=== PATIENT | male | born 1945 | race African-American/Black ===

== ENCOUNTER 2019-04-19 17:51 | Observation (INO) | payer MEDICARE, MEDICAID ==
--- NOTE | 2019-04-19 18:21 | ER Document Report ---
ED Medical Screen (RME) - General Chief Complaint: Weakness Stated Complaint: WEAKNESS,SPEECH SLOW Time Seen by Provider: 04/19/19 18:08 Primary Care Provider: PREMA KING MD [Primary Care Provider] - Follow up as needed Notes: Patient is a 73-year-old male who presents emergency department with a chief complaint of possible stroke. Daughter in triage reports that he drove to pick her up from work about 1 hour ago and that he was not acting himself. She reports that it took him longer than normal to unlock the door, that he was driving 50 mph when the speed limit was 45 mph and just seems more slower to respond. Patient reports he noticed the symptoms around 4:30 AM this morning. Daughter states that he does not go to a doctor regularly and does not have any past medical history. Does not take any home medications. Patient denies falling. Patient reports he is not having a headache but noticed that he has had blurred vision in both eyes. Patient denies numbness or tingling to his upper or lower extremities. Patient reports he feels like he has a visor over both of his eyes even though he does not. Patient reports this morning around 5 AM he noticed that he was slower to respond and get words out. Patient denies recent illness. Denies history of stroke or TIA. TRAVEL OUTSIDE OF THE [place] IN LAST 30 DAYS: No - Related Data Allergies/Adverse Reactions: No Known Allergies Allergy (Verified 04/19/19 18:07) Past Medical History - Past Medical History Cardiac Medical History: Reports: Hx Hypertension Musculoskeltal Medical History: Reports Hx Arthritis - Immunizations Hx Diphtheria, Pertussis, Tetanus Vaccination: Yes Physical Exam - Vital signs Vitals: Temp Pulse Resp BP Pulse Ox 98.7 F 70 21 H 160/91 H 98 04/19/19 18:06 04/19/19 18:06 04/19/19 18:06 04/19/19 18:06 04/19/19 18:06 Course - Re-evaluation Re-evalutation: 04/19/19 18:20 In triage patient is alert and oriented x3. I am running this as a code stroke as the symptoms have been less than 24 hours. Patient is able to answer questions appropriately but appears to be slower to answer the questions and having difficulty getting the words out. Daughter reports that he is usually much faster than this and that this is a change from his normal. Patient reports this did start around 430-5 AM this morning, and states he did wake up normal. Patient does live by himself. I have greeted and performed a rapid initial assessment of this patient. A comprehensive ED assessment and evaluation of the patient, analysis of test results and completion of the medical decision making process will be conducted by additional ED providers. - Vital Signs Vital signs: Temp Pulse Resp BP Pulse Ox 98.7 F 70 21 H 160/91 H 98 04/19/19 18:06 04/19/19 18:06 04/19/19 18:06 04/19/19 18:06 04/19/19 18:06 Doctor's Discharge - Discharge Referrals: PREMA KING MD [Primary Care Provider] - Follow up as needed
--- NOTE | 2019-04-19 18:41 | RADIOLOGY REPORT (SQ) ---
EXAM DESCRIPTION: CHEST SINGLE VIEW COMPLETED DATE/TIME: 04/19/2019 6:34 pm REASON FOR STUDY: SLURRED AND SLOWED SPEECH COMPARISON: 06/14/2015 EXAM PARAMETERS: NUMBER OF VIEWS: One view. TECHNIQUE: Single frontal radiographic view of the chest acquired. RADIATION DOSE: NA LIMITATIONS: None. FINDINGS: LUNGS AND PLEURA: No opacities, masses or pneumothorax. No pleural effusion. MEDIASTINUM AND HILAR STRUCTURES: No masses. Contour normal. HEART AND VASCULAR STRUCTURES: Heart normal in size. Normal vasculature. BONES: No acute findings. HARDWARE: None in the chest. OTHER: No other significant finding. IMPRESSION: NO ACUTE RADIOGRAPHIC FINDING IN THE CHEST. TECHNICAL DOCUMENTATION: JOB ID: [id number] 2010 [employer]- All Rights Reserved Reading location - IP/workstation name: [email or web address]
--- NOTE | 2019-04-19 19:00 | RADIOLOGY REPORT (SQ) ---
EXAM DESCRIPTION: CT HEAD WITHOUT COMPLETED DATE/TIME: 04/19/2019 6:46 pm REASON FOR STUDY: SLURRED AND SLOWED SPEECH COMPARISON: 10/02/2014 TECHNIQUE: Axial images acquired through the brain without intravenous contrast. Images reviewed wi th bone, brain and subdural windows. Additional sagittal and coronal reconstructions were generated. Images stored on PACS. All CT scanners at this facility use dose modulation, iterative reconstruction, and/or weight based d osing when appropriate to reduce radiation dose to as low as reasonably achievable (ALARA). [facility]: Dose Right [facility]: CareDose [facility]: Dose Right [facility]: Teradose 4D [facility]: Smart innocutis RADIATION DOSE: CT Rad equipment meets quality standard of care and radiation dose reduction techniq ues were employed. CTDIvol: 53.2 mGy. DLP: 911 mGy-cm. mGy. LIMITATIONS: None. FINDINGS: VENTRICLES: Age appropriate CEREBRUM: No masses. No hemorrhage. No midline shift. Focal area of hypoattenuation and encephalom alacia within the left caudate head, new from prior exam. No additional evidence of large vascular t erritory infarct. Remaining galvan-white differentiation is preserved. CEREBELLUM: No masses. No hemorrhage. No alteration of density. No evidence for acute infarction. EXTRAAXIAL SPACES: Mild age-related involutional change. No fluid collections. No masses. ORBITS AND GLOBE: No intra- or extraconal masses. Normal contour of globe without masses. CALVARIUM: No fracture. PARANASAL SINUSES: No fluid or mucosal thickening. SOFT TISSUES: No mass or hematoma. OTHER: No other significant finding. IMPRESSION: 1. Focal area of hypoattenuation within the left caudate head, likely prior chronic lacu enmanuel infarct but new since prior exam dated 10/02/2014. 2. No other evidence of acute intracranial process. 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 Findings discussed with Dr. Singh At 1853 hours on 04/19/2019. TECHNICAL DOCUMENTATION: JOB ID: [id number] Quality ID # [id number]: Final reports with documentation of one or more dose reduction techniques (e.g., Au tomated exposure control, adjustment of the mA and/or kV according to patient size, use of iterative reconstruction technique) 2010 [employer]- All Rights Reserved Reading location - IP/workstation name: [email or web address]
--- NOTE | 2019-04-19 19:57 | ER Document Report ---
ED General - General Chief Complaint: S/S of Possible Stroke Stated Complaint: WEAKNESS,SPEECH SLOW Time Seen by Provider: 04/19/19 18:08 TRAVEL OUTSIDE OF THE [place] IN LAST 30 DAYS: No - HPI Notes: Patient is a 73-year-old gentleman with a history of chronic pain, he does not see a primary care physician, who presents to the emergency department for evaluation of slurred speech, expressive aphasia, and confusion. Patient lives alone. He woke up at about 430 this morning. Shortly afterwards he went to [employer] to meet with other family members and friends. He admits at that point he was having difficulty with words, slurring his speech. He went about his day is normal. 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 He was having confusion, difficulty unlocking the doors. He was driving approximately 15 miles an hour on a 45 [id number] zone. He has been acting oddly. He stated he had some visual changes earlier. He really cannot describe them for me other than stating "it is like a visor in my eyes." He states that that has resolved. At this point he denies any pain. - Related Data Allergies/Adverse Reactions: No Known Allergies Allergy (Verified 04/19/19 18:07) Home Medications: Percocet 10 mg as needed. Past Medical History - Social History Smoking Status: Current Every Day Smoker Chew tobacco use (# tins/day): No Family History: Reviewed & Not Pertinent Patient has suicidal ideation: No Patient has homicidal ideation: No - Past Medical History Cardiac Medical History: Reports: Hx Hypertension Musculoskeletal Medical History: Reports Hx Arthritis - Immunizations Hx Diphtheria, Pertussis, Tetanus Vaccination: Yes Physical Exam - Vital signs Vitals: Temp Pulse Resp BP Pulse Ox 98.7 F 70 21 H 160/91 H 98 04/19/19 18:06 04/19/19 18:06 04/19/19 18:06 04/19/19 18:06 04/19/19 18:06 - Notes Notes: Is a 73-year-old obese gentleman who appears his stated age, no acute distress. Vital signs reviewed, please refer to chart. Head is normocephalic, atraumatic. Pupils equal round, reactive to light. Neck is supple without meningismus. Heart is regular rate and rhythm. Lungs are clear to auscultation bilaterally. Abdomen is soft, nontender, normoactive bowel sounds throughout. Extremities without cyanosis, clubbing. Posterior calves are nontender. Peripheral pulses are equal. Skin is warm and dry. Patient is awake and alert. He is oriented x3. He is very slow to answer questions, has some very mild expressive aphasia. Patient with some mild dysarthria, but otherwise cranial nerves II through XII are grossly tact without focal neurological deficits.. Strength is 4+ out of 5 left upper extremity, plus 5 out of 5 right upper and bilateral lower extremities. Sensation is intact, reflexes are diminished but symmetrical. Intact [id number], rapid altering movements, [id number]. Course - Re-evaluation Re-evalutation: 04/19/19 22:13 Patient presents to the emergency department for evaluation. Unfortunately, the patient lives alone. I am unsure as to whether or not his symptoms are present when he woke, and he is a very poor historian. For this reason on its own the patient does not meet any TPA criteria. The patient had a CT scan per stroke protocol on arrival. It did show an old caudate CVA, new since 2014, but not likely acute. Patient's blood pressure was elevated here in the 180s and 190s. He was initially given hydralazine with little in the way of improvement. He was further given labetalol. His blood pressure improved, he is currently 160/74. His heart rates in the 60s. He remains vitally stable. He still has some mild expressive aphasia and dysarthria. His very mild left upper extremity weakness is improved. Patient is noncompliant, does not have a primary care doctor. I will contact internal medicine for admission. 04/19/19 22:22 On reevaluation, patient is very mild left upper extremity weakness has resolved, his slurred speech has improved greatly, and according to family his expressive aphasia has improved as well. Awaiting discussion with Dr. Shearer. 04/19/19 22:55 Dr. Shearer will admit the patient - Vital Signs Vital signs: Temp Pulse Resp BP Pulse Ox 98.7 F 97 14 158/76 H 100 04/19/19 18:06 04/19/19 21:00 04/19/19 21:31 04/19/19 21:31 04/19/19 21:31 - Laboratory Result Diagrams: 04/19/19 19:22 04/19/19 19:22 Laboratory results interpreted by me: 04/19/19 04/19/19 19:22 19:22 RDW 14.3 H Total Protein 8.5 H - Diagnostic Test Radiology reviewed: Reports reviewed Radiology results interpreted by me: 04/19/19 22:15 Chest X-Ray 04/19/19 18:16 IMPRESSION: NO ACUTE RADIOGRAPHIC FINDING IN THE CHEST. Head CT 04/19/19 18:16 IMPRESSION: 1. Focal area of hypoattenuation within the left caudate head, likely prior chronic lacunar infarct but new since prior exam dated 10/02/2014. 2. No other evidence of acute intracranial process. 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 Findings discussed with Dr. Singh At 1853 hours on 04/19/2019. - EKG Interpretation by Me Additional EKG results interpreted by me: 04/19/19 22:16 Sinus rhythm with a rate of 67 bpm. PVC. Left axis deviation. IVCD with incomplete left bundle branch block. Diffuse T wave changes, unchanged from prior study of June 14, 2015. Discharge - Discharge Clinical Impression: CVA (cerebral vascular accident) Qualifiers: CVA mechanism: unspecified Qualified Code(s): I63.9 - Cerebral infarction, unspecified Condition: Stable Disposition: ADMITTED INPATIENT Admitting Provider: Manfred (Hospitalist) Unit Admitted: [facility]
[2019-04-19 20:00] LABS: ABSOLUTE EOSINOPHILS # (AUTO) 0.1 10^3/uL (0.0-0.6); ABSOLUTE LYMPHOCYTES (AUTO) 3.6 10^3/uL (0.5-4.7); ABSOLUTE MONOCYTES (AUTO) 0.7 10^3/uL (0.1-1.4); ABSOLUTE NEUT (AUTO) 3.8 10^3/uL (1.7-8.2); BASOPHILS % (AUTO) 0.5 % (0-2); EOSINOPHILS % (AUTO) 1.7 % (0-6); HEMATOCRIT 43.5 % (37.9-51.0); HEMOGLOBIN 14.7 g/dL (13.5-17.0); LYMPHOCYTES % (AUTO) 43.7 % (13-45); MEAN CORPUSCULAR HEMOGLOBIN 29.2 pg (27.0-33.4); MEAN CORPUSCULAR HGB CONC 33.7 g/dL (32.0-36.0); MEAN CORPUSCULAR VOLUME 87 fl (80-97); MONOCYTES % (AUTO) 8.3 % (3-13); PLATELET COUNT 211 10^3/uL (150-450); RED BLOOD COUNT 5.03 10^6/uL (4.35-5.55); RED CELL DISTRIBUTION WIDTH 14.3 % (11.5-14.0); SEGMENTED NEUTROPHILS % (AUTO) 45.8 % (42-78); TOTAL CELLS COUNTED % (AUTO) 100 %; WHITE BLOOD COUNT 8.3 10^3/uL (4.0-10.5)
[2019-04-19 20:01] LABS: INTERNATIONAL RATION (INR) 1.05; PROTHROMBIN TIME 13.8 SEC (11.4-15.4)
[2019-04-19 20:02] LABS: PARTIAL THROMBOPLASTIN TIME 26.4 SEC (23.5-35.8)
[2019-04-19] MEDS ORDERED: HYDRALAZINE HCL INJ/PF 20 MG/1 ML SDV IV ONE (20:03)
[2019-04-19 20:18] LABS: ALBUMIN 4.7 g/dL (3.5-5.0); ALKALINE PHOSPHATASE 117 U/L (38-126); ANION GAP 11 (5-19); ASPARTATE AMINO TRANSFERASE 23 U/L (17-59); BILIRUBIN,DIRECT 0.3 mg/dL (0.0-0.4); BILIRUBIN,TOTAL 0.5 mg/dL (0.2-1.3); BLOOD UREA NITROGEN 14 mg/dL (7-20); CALCIUM 9.7 mg/dL (8.4-10.2); CARBON DIOXIDE 25 mmol/L (22-30); CHLORIDE 103 mmol/L (98-107); CREATINE KINASE 153 U/L (55-170); GLUCOSE 95 mg/dL (75-110); POTASSIUM 4.5 mmol/L (3.6-5.0); TOTAL PROTEIN 8.5 g/dL (6.3-8.2)
[2019-04-19 20:30] LABS: CREATINE KINASE MB 2.81 ng/mL (<4.55)
[2019-04-19 20:41] LABS: TROPONIN I 0.061 ng/mL
[2019-04-19] MEDS ORDERED: LABETALOL HCL INJ 20 MG/4 ML DISP.SYRIN IV ONE (21:04)
[2019-04-19] MEDS ORDERED: ASPIRIN 325 MG TABLET PO ONE (21:04)
--- NOTE | 2019-04-19 22:57 | EKG REPORT ---
SEVERITY:- ABNORMAL ECG - SINUS RHYTHM VENTRICULAR PREMATURE COMPLEX PROBABLE LEFT ATRIAL ABNORMALITY LVH WITH IVCD, LAD AND SECONDARY REPOL ABNRM : Confirmed by: Ayse Porter MD 19-Apr-2019 22:56:15
[2019-04-19] MEDS ORDERED: MAGNESIUM HYDROXIDE SUSP 30 ML UDCUP PO PRN (22:59)
[2019-04-19] MEDS ORDERED: ACETAMINOPHEN 325 MG TABLET PO PRN (22:59)
[2019-04-19] MEDS ORDERED: DOCUSATE SODIUM 100 MG CAPSULE PO PRN (22:59)
[2019-04-20] MEDS: ATORVASTATIN CALCIUM 80 MG TABLET PO SCH ×2 (00:07→21:21)
[2019-04-20] MEDS ORDERED: NICOTINE 7 MG/24 HR PATCH.TD24 ONE (00:30)
[2019-04-20] MEDS: NICOTINE 7 MG/24 HR PATCH.TD24 TD SCH ×2 (00:56→10:11)
--- NOTE | 2019-04-20 05:29 | PDOC H&P ---
History of Present Illness Admission Date/PCP: 04/19/19 23:07 Patient complains of: Weakness and slow speech History of Present Illness: EMIR BARROS is a 73 year old male with a past medical history of hypertension without medication, arthritis related chronic pain and tobacco dependence. He presents with at least 12 hours of word finding difficulty, and discoordination, slurred speech and generalized weakness. In the emergency department he is found to have dysarthria, hypertensive urgency of 190/110. He receives aspirin, hydralazine, labetalol. CT imaging reveals subacute caudate CVA. He is referred to the hospitalist for admission. Patient family deny previous episode or palpitations. Patient is otherwise felt chronically tired with poor sleep and fatigue. He denies recent change in medications. Past Medical History Cardiac Medical History: Reports: Hypertension Musculoskeltal Medical History: Reports: Arthritis Psychiatric Medical History: Reports: Tobacco Dependency Social History Information Source: Patient Lives with: Alone Smoking Status: Current Every Day Smoker Electronic Cigarette use?: No Frequency of Alcohol Use: None Drugs: None - Advance Directive Resuscitation Status: Full Code Family History Family History: CAD, DM, Hypertension Parental Family History Reviewed: Yes Children Family History Reviewed: Yes Sibling(s) Family History Reviewed.: Yes Medication/Allergy Home Medications: Oxycodone HCl/Acetaminophen [Oxycodone-Acetaminophen 10-325] 1 tab PO ASDIR PRN 06/14/15 Allergies/Adverse Reactions: No Known Allergies Allergy (Verified 04/19/19 18:07) Review of Systems Constitutional: PRESENT: as per HPI, fatigue. ABSENT: fever(s), headache(s), night sweats, weakness Eyes: ABSENT: visual disturbances Ears: ABSENT: hearing changes Cardiovascular: ABSENT: edema, orthropnea, palpitations Respiratory: ABSENT: cough, hemoptysis Gastrointestinal: ABSENT: abdominal pain, constipation, diarrhea, hematemesis, hematochezia, nausea, vomiting Genitourinary: ABSENT: dysuria, hematuria Musculoskeletal: ABSENT: joint swelling Integumentary: ABSENT: rash, wounds Neurological: ABSENT: abnormal gait, abnormal speech, confusion, dizziness, focal weakness, syncope Psychiatric: ABSENT: anxiety, depression, homidical ideation, suicidal ideation Endocrine: ABSENT: cold intolerance, heat intolerance, polydipsia, polyuria Hematologic/Lymphatic: ABSENT: easy bleeding, easy bruising Physical Exam Vital Signs: Temp Pulse Resp BP Pulse Ox 98.5 F 75 12 98/62 L 97 04/20/19 04:17 04/20/19 03:00 04/20/19 04:32 04/20/19 04:32 04/20/19 04:32 Intake & Output 04/18/19 04/19/19 04/20/19 11:59 11:59 11:59 Weight 121.9 kg General appearance: PRESENT: cooperative, mild distress, obese, well-developed, well-nourished Head exam: PRESENT: atraumatic, normocephalic Eye exam: PRESENT: conjunctiva pink, EOMI, PERRLA. ABSENT: scleral icterus Ear exam: PRESENT: normal external ear exam Mouth exam: PRESENT: moist, tongue midline Neck exam: ABSENT: carotid bruit, JVD, lymphadenopathy, thyromegaly Respiratory exam: PRESENT: clear to auscultation miller. ABSENT: rales, rhonchi, wheezes Cardiovascular exam: PRESENT: +S1, +S2, systolic murmur Pulses: PRESENT: normal dorsalis pedis pul Vascular exam: PRESENT: normal capillary refill GI/Abdominal exam: PRESENT: normal bowel sounds, soft. ABSENT: distended, guarding, mass, organolmegaly, rebound, tenderness Rectal exam: PRESENT: deferred Extremities exam: PRESENT: full ROM. ABSENT: calf tenderness, clubbing, pedal edema Neurological exam: PRESENT: alert, awake, oriented to person, oriented to place, oriented to time, oriented to situation, CN II-XII grossly intact, motor sensory deficit - 4+ out of 5 in the left upper extremity, aphasic Psychiatric exam: PRESENT: appropriate affect, normal mood. ABSENT: homicidal ideation, suicidal ideation Skin exam: PRESENT: dry, intact, warm. ABSENT: cyanosis, rash Results Laboratory Results: 04/19/19 19:22 04/19/19 19:22 04/19/19 04/19/19 04/19/19 19:22 19:22 19:22 WBC 8.3 RBC 5.03 Hgb 14.7 Hct 43.5 MCV 87 MCH 29.2 MCHC 33.7 RDW 14.3 H Plt Count 211 Seg Neutrophils % 45.8 Sodium 138.7 Potassium 4.5 Chloride 103 Carbon Dioxide 25 Anion Gap 11 BUN 14 Creatinine 0.93 Est GFR ( Amer) > 60 Glucose 95 Calcium 9.7 Total Bilirubin 0.5 AST 23 Alkaline Phosphatase 117 Total Protein 8.5 H Albumin 4.7 TSH 1.18 04/19/19 04/19/19 19:22 19:22 Creatine Kinase 153 CK-MB (CK-2) 2.81 Troponin I 0.061 Impressions: Chest X-Ray 04/19/19 18:16 IMPRESSION: NO ACUTE RADIOGRAPHIC FINDING IN THE CHEST. Head CT 04/19/19 18:16 IMPRESSION: 1. Focal area of hypoattenuation within the left caudate head, likely prior chronic lacunar infarct but new since prior exam dated 10/02/2014. 2. No other evidence of acute intracranial process. 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 Findings discussed with Dr. Singh At 1853 hours on 04/19/2019. Assessment and Plan - Diagnosis (1) CVA (cerebral vascular accident) Qualifiers: CVA mechanism: unspecified Qualified Code(s): I63.9 - Cerebral infarction, unspecified Is this a current diagnosis for this admission?: Yes Plan: CVA care set, follow-up MRI, carotid Doppler and 2D echo. Statin and aspirin initiated. Permissive hypertension (2) Hypertensive urgency Is this a current diagnosis for this admission?: Yes Plan: Complicated by likely undiagnosed diastolic heart Optimize volume, blood pressure and heart rate, follow-up 2D echo (3) Diastolic heart failure of unknown etiology Is this a current diagnosis for this admission?: Yes Plan: Optimize volume, blood pressure and heart rate, follow-up chemistry (4) Tobacco abuse Is this a current diagnosis for this admission?: Yes Plan: Tobacco cessation counseling performed, nicotine replacement options discussed (5) Obstructive sleep apnea Is this a current diagnosis for this admission?: Yes Plan: Strongly suggested by history of chronic fatigue, poor sleep awakening tired. Suggest outpatient sleep study. - Time Time Spent with patient: 25-34 minutes - Inpatient Certification Medical Necessity: Need Close Monitoring Due to Risk of Patient Decompensation
[2019-04-20] MEDS ORDERED: NORMAL SALINE 1000 ML 1,000 ML IV ONE (06:00)
[2019-04-20] MEDS: HEPARIN SOD (PORCINE) 5,000 UNIT/ML 1 ML VIAL SUBCUT SCH ×3 (06:52→21:21)
[2019-04-20 07:26] LABS: TRIGLYCERIDES 108 mg/dL (<150)
[2019-04-20 07:36] LABS: DIRECT LDL 176 mg/dL (<100)
--- NOTE | 2019-04-20 09:55 | RADIOLOGY REPORT (SQ) ---
EXAM DESCRIPTION: MRI HEAD WITHOUT COMPLETED DATE/TIME: 04/20/2019 9:29 am REASON FOR STUDY: stroke R01.1 CARDIAC MURMUR, UNSPECIFIED COMPARISON: CT of the head without contrast from 04/19/2019. TECHNIQUE: Multiplanar imaging includes non-contrasted T1, T2, FLAIR, and diffusion with ADC map seq uences. Images stored on PACS. LIMITATIONS: None. FINDINGS: There is an area of restricted diffusion within the precentral gyrus of the right frontal lobe (in the distribution of the cortical branches of the right MCA) that demonstrates increased sign al on the FLAIR sequences. The area of hypoattenuation within the head of the left caudate nucleus demonstrates increased signal on the T2 weighted sequence and is consistent with a chronic lacunar infarct. The areas of increased T2/FLAIR signal within the supratentorial periventricular and subcortical whit e matter correspond to the areas of hypoattenuation described on the correlative CT and are consisten t with the sequela of chronic microvascular ischemia. There is no blooming artifact on the gradient sequence to indicate hemosiderin deposition. There is also no acute intracranial hemorrhage, extra-axial fluid collection, mass, mass effect or midline thu ft. There is no effacement of the cerebral sulci or basal subarachnoid cisterns. The caliber of the ventricles is concordant with the degree of sulcation. The intracranial vascular flow voids are preserved. IMPRESSION: Acute infarct within the precentral gyrus of the right frontal lobe (in the distribution of the cortical branches of the right MCA). EVIDENCE OF ACUTE STROKE: YES. RIGHT MCA TECHNICAL DOCUMENTATION: JOB ID: [id number] 2010 [employer]- All Rights Reserved Reading location - IP/workstation name: [email or web address]
[2019-04-20] MEDS ORDERED: AMLODIPINE BESYLATE 2.5 MG TABLET PO SCH (10:00)
[2019-04-20] MEDS: ASPIRIN 81 MG TABLET, ENT COATED PO SCH (10:11)
--- NOTE | 2019-04-20 11:09 | PDOC PROGRESS REPORT ---
Subjective Progress Note for:: 04/20/19 Subjective:: Discussion had with patient and daughter at bedside. Patient volunteers that he is still experiencing loss of upper visual benítez yesterday which progressed into word finding. Symptoms started yesterday morning when dropping patient's daughter off at work. Had difficulty trying to open the door. Of note patient has not been to a doctor in a few years. He does not take any medication denies any medical history patient also denies any prior history of strokes. At this time, patient's daughter still notes that patient is still having some trouble with word finding though improved from before. Patient denies any weakness in his extremities. Reason For Visit: CVA HTN Physical Exam Vital Signs: Temp Pulse Resp BP Pulse Ox 98.7 F 69 16 135/60 H 100 04/20/19 05:08 04/20/19 05:08 04/20/19 05:08 04/20/19 05:08 04/20/19 05:08 Intake & Output 04/19/19 04/20/19 04/21/19 06:59 06:59 06:59 Weight 121.9 kg General appearance: PRESENT: no acute distress, cooperative, morbidly obese Eye exam: PRESENT: EOMI, PERRLA, other - Droopy right eyelid. ABSENT: nystagmus Mouth exam: PRESENT: neck supple Neck exam: ABSENT: JVD Respiratory exam: PRESENT: clear to auscultation miller, unlabored. ABSENT: tachypnea, wheezes Cardiovascular exam: PRESENT: RRR, +S1, +S2. ABSENT: tachycardia GI/Abdominal exam: PRESENT: soft. ABSENT: rebound, rigid, tenderness Neurological exam: PRESENT: alert, awake, oriented to person, oriented to place, oriented to time, oriented to situation, ataxia - Mild ataxia noted in the left hand on rapid alternating movements. Otherwise normal, CN II-XII grossly intact, motor sensory deficit - Mild weakness in left leg. Otherwise 5/5 strength in other extremities though left arm is very minimally weaker than right arm, aphasic - A little bit slow with speech but no significant evidence of aphasia at this time Psychiatric exam: ABSENT: agitated, anxious Skin exam: ABSENT: dry Results Laboratory Results: 04/19/19 19:22 04/19/19 19:22 04/19/19 04/19/19 04/19/19 19:22 19:22 19:22 WBC 8.3 RBC 5.03 Hgb 14.7 Hct 43.5 MCV 87 MCH 29.2 MCHC 33.7 RDW 14.3 H Plt Count 211 Seg Neutrophils % 45.8 Sodium 138.7 Potassium 4.5 Chloride 103 Carbon Dioxide 25 Anion Gap 11 BUN 14 Creatinine 0.93 Est GFR ( Amer) > 60 Glucose 95 Calcium 9.7 Total Bilirubin 0.5 AST 23 Alkaline Phosphatase 117 Total Protein 8.5 H Albumin 4.7 Triglycerides Cholesterol LDL Cholesterol Direct VLDL Cholesterol HDL Cholesterol TSH 1.18 04/20/19 06:23 WBC RBC Hgb Hct MCV MCH MCHC RDW Plt Count Seg Neutrophils % Sodium Potassium Chloride Carbon Dioxide Anion Gap BUN Creatinine Est GFR ( Amer) Glucose Calcium Total Bilirubin AST Alkaline Phosphatase Total Protein Albumin Triglycerides 108 Cholesterol 208.70 H LDL Cholesterol Direct 176 H VLDL Cholesterol 22.0 HDL Cholesterol 27 L TSH 04/19/19 04/19/19 19:22 19:22 Creatine Kinase 153 CK-MB (CK-2) 2.81 Troponin I 0.061 Impressions: Chest X-Ray 04/19/19 18:16 IMPRESSION: NO ACUTE RADIOGRAPHIC FINDING IN THE CHEST. Head CT 04/19/19 18:16 IMPRESSION: 1. Focal area of hypoattenuation within the left caudate head, likely prior chronic lacunar infarct but new since prior exam dated 10/02/2014. 2. No other evidence of acute intracranial process. 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 Findings discussed with Dr. Singh At 1853 hours on 04/19/2019. Head MRI 04/20/19 00:00 IMPRESSION: Acute infarct within the precentral gyrus of the right frontal lobe (in the distribution of the cortical branches of the right MCA). EVIDENCE OF ACUTE STROKE: YES. RIGHT MCA Assessment and Plan - Diagnosis (1) Acute ischemic right MCA stroke Is this a current diagnosis for this admission?: Yes Plan: Acute ischemic stroke involving the right frontal lobe in the right MCA region confirmed on MRI of the brain. NIHS 3-4 Unfortunately, patient was already out of the window for TPA at the time of presentation. Check CTA head and neck for vascular assessment. Check echocardiogram Monitor on telemetry for occult arrhythmia Patient is already outside the 24-hour since onset sherry and does not need any continuation of permissive hypertension at this time. Atorvastatin high-dose Aspirin Plavix for 21 days (2) Obesity (BMI 30-39.9) Is this a current diagnosis for this admission?: Yes Plan: Will benefit from sleep study in outpatient setting to evaluate for underlying LILLY. Check hemoglobin A1c. (3) Hyperlipidemia Qualifiers: Hyperlipidemia type: pure hypercholesterolemia Qualified Code(s): E78.00 - Pure hypercholesterolemia, unspecified; E78.0 - Pure hypercholesterolemia Is this a current diagnosis for this admission?: Yes Plan: Started on atorvastatin (4) Tobacco abuse Is this a current diagnosis for this admission?: Yes Plan: Nicotine replacement therapy instituted. Patient interested in stopping smoking and denies history of eating or seizure disorders. Will start on bupropion 150 mg daily. - Time Time Spent with patient: 25-34 minutes
[2019-04-20] MEDS ORDERED: CLOPIDOGREL BISULFATE 75 MG TABLET PO ONE (11:15)
--- NOTE | 2019-04-20 13:26 | RADIOLOGY REPORT (SQ) ---
EXAM DESCRIPTION: CTA NECK COMPLETED DATE/TIME: 04/20/2019 12:42 pm REASON FOR STUDY: stroke R01.1 CARDIAC MURMUR, UNSPECIFIED E08.41 DIABETES DUE TO UNDRL CONDITION W DIABETIC MONONEUROP COMPARISON: None. TECHNIQUE: Axial dynamic scanning technique with dynamic contrast enhancement through the extra-supervisor aircraft maintenance nial carotid and vertebral arteries. Multiplanar reconstruction. 3-D MIPS and Volume-rendered imag es acquired at the workstation and saved to PACS. Images are reviewed in soft tissue, bone, lung w indows. All CT scanners at this facility use dose modulation, iterative reconstruction, and/or weight based d osing when appropriate to reduce radiation dose to as low as reasonably achievable (ALARA). [facility]: Dose Right [facility]: CareDose [facility]: Dose Right [facility]: Teradose 4D [facility]: Nintu Oy CONTRAST TYPE AND DOSE: 70 mL Omnipaque 350- low osmolar. RENAL FUNCTION: BUN 14 creatinine 0.93 LIMITATIONS: None. FINDINGS: AORTIC ARCH: Normal three-vessel origin. Bilateral subclavian arteries are patent. No d issection. RIGHT CAROTIDS: Patent common, internal and external carotid arteries without suggestion of significa nt stenosis or irregular plaque. No dissection. Slightly tortuous ICA RIGHT VERTEBRAL: Patent. No dissection. LEFT CAROTIDS: Patent common, internal and external carotid arteries without suggestion of significan t stenosis or irregular plaque. No dissection. Tortuous ICA LEFT VERTEBRAL: Patent. No dissection. OTHER: No other significant finding. OTHER: 3-D reconstructions confirm findings. IMPRESSION: NORMAL CTA OF THE EXTRA-CRANIAL CAROTID AND VERTEBRAL ARTERIES. COMMENT: Quality ID #[id number]: Measurements of distal internal carotid diameter were used as the denomina tor for stenosis measurement. TECHNICAL DOCUMENTATION: JOB ID: [id number] Quality ID # 436: Final reports with documentation of one or more dose reduction techniques (e.g., Au tomated exposure control, adjustment of the mA and/or kV according to patient size, use of iterative reconstruction technique) 2010 [employer]- All Rights Reserved Reading location - IP/workstation name: [email or web address]
--- NOTE | 2019-04-20 13:31 | RADIOLOGY REPORT (SQ) ---
EXAM DESCRIPTION: CTA HEAD COMPLETED DATE/TIME: 04/20/2019 12:41 pm REASON FOR STUDY: stroke R01.1 CARDIAC MURMUR, UNSPECIFIED E08.41 DIABETES DUE TO UNDRL CONDITION W DIABETIC MONONEUROP COMPARISON: None. TECHNIQUE: Post IV contrast scanning, thin section axial imaging through the brain to evaluate the a rterial structures. Source and MIP images are saved and reviewed on PACS. Advanced 3D imaging as volume-rendering, MIPs, SSD performed? yes All CT scanners at this facility use dose modulation, iterative reconstruction, and/or weight based d osing when appropriate to reduce radiation dose to as low as reasonably achievable (ALARA). [facility]: Dose Right [facility]: CareDose [facility]: Dose Right [facility]: Teradose 4D [facility]: VoluBill CONTRAST TYPE AND DOSE: contrast/concentration: Isovue 350.00 mg/ml; Total Contrast Delivered: 70.0 ml; Total Saline Delivered: 75.0 ml RENAL FUNCTION: BUN 14 creatinine 0.93 LIMITATIONS: None. FINDINGS: [place]: The anterior, middle, posterior cerebral arteries are all patent. The A 1 segment on the left is smaller than on the right. . POSTERIOR CIRCULATION: The distal vertebral arteries are patent as is the basilar artery. No aneurysm . BRAIN: No gross enhancing lesions as visualized. The superior cerebral hemispheres are not included in the field of view. BONES: Intact as visualized. SINUSES: No fluid or mucosal thickening. OTHER: No other significant finding. IMPRESSION: NO CTA EVIDENCE OF STENOSIS OR ANEURYSM OF THE [place]. TECHNICAL DOCUMENTATION: JOB ID: [id number] Quality ID # [id number]: Final reports with documentation of one or more dose reduction techniques (e.g., Au tomated exposure control, adjustment of the mA and/or kV according to patient size, use of iterative reconstruction technique) 2010 [employer]- All Rights Reserved Reading location - IP/workstation name: [email or web address]
[2019-04-20] MEDS: BUPROPION HCL 75 MG TABLET PO SCH (22:27)
[2019-04-21] MEDS: HEPARIN SOD (PORCINE) 5,000 UNIT/ML 1 ML VIAL SUBCUT SCH ×2 (05:35→13:48)
[2019-04-21] MEDS ORDERED: DEXTROSE 50%-WATER 25 GM/50 ML DISP.SYRIN IV PRN ×2 (07:57)
[2019-04-21] MEDS ORDERED: GLUCAGON,HUMAN RECOMB 1 MG INJ IM PRN (07:57)
[2019-04-21] MEDS ORDERED: DEXTROSE 40% GEL 15 GM TUBE PO PRN ×2 (07:57)
[2019-04-21 08:30] LABS: URINE AMPHETAMINES SCREEN NEGATIVE; URINE BARBITURATES SCREEN NEGATIVE; URINE BENZODIAZEPINES SCREEN NEGATIVE; URINE COCAINE SCREEN NEGATIVE; URINE MARIJUANA (THC) SCREEN NEGATIVE; URINE METHADONE SCREEN NEGATIVE; URINE PHENCYCLIDINE SCREEN NEGATIVE
[2019-04-21] MEDS: BUPROPION HCL 75 MG TABLET PO SCH (09:08)
[2019-04-21] MEDS: ASPIRIN 81 MG TABLET, ENT COATED PO SCH (09:08)
[2019-04-21] MEDS: NICOTINE 7 MG/24 HR PATCH.TD24 TD SCH (09:09)
[2019-04-21] MEDS ORDERED: AMLODIPINE BESYLATE 2.5 MG TABLET PO SCH (10:00)
[2019-04-21] MEDS ORDERED: CLOPIDOGREL BISULFATE 75 MG TABLET PO SCH (10:00)
--- NOTE | 2019-04-21 13:59 | PDOC DISCHARGE SUMMARY ---
Impression - Admit/DC Date/PCP Admission Date/Primary Care Provider: 04/19/19 23:07 Discharge Date: 04/21/19 - Discharge Diagnosis (1) Acute ischemic right MCA stroke Is this a current diagnosis for this admission?: Yes (2) Obesity (BMI 30-39.9) Is this a current diagnosis for this admission?: Yes (3) Hyperlipidemia Is this a current diagnosis for this admission?: Yes (4) Tobacco abuse Is this a current diagnosis for this admission?: Yes (5) Cardiomyopathy Is this a current diagnosis for this admission?: Yes - Additional Information Resuscitation Status: Full Code Discharge Diet: Cardiac, Diabetic Referrals: CAROLINE KHALIL MD [ACTIVE STAFF] - LUIGI LEON MD [ACTIVE STAFF] - 05/09/19 1:45 pm Prescriptions: Aspirin [Ecotrin 81 mg EC Tablet] 81 mg PO DAILY #30 tabec Atorvastatin Calcium [Lipitor 80 mg Tablet] 80 mg PO QHS #30 tablet Nicotine [Nicoderm 7 mg/24 Hr Transdermal Patch] 1 each TD DAILY #20 patch.td24 Clopidogrel Bisulfate [Plavix 75 mg Tablet] 75 mg PO DAILY 21 Days tablet Lisinopril [Prinivil] 20 mg PO DAILY #30 tablet Home Medications: Oxycodone HCl/Acetaminophen [Percocet 10-325 Mg Tablet] 1 each PO Q6HP PRN 04/20/19 Aspirin [Ecotrin 81 mg EC Tablet] 81 mg PO DAILY #30 tabec 04/21/19 Atorvastatin Calcium [Lipitor 80 mg Tablet] 80 mg PO QHS #30 tablet 04/21/19 Clopidogrel Bisulfate [Plavix 75 mg Tablet] 75 mg PO DAILY 21 Days tablet 04/21/19 Lisinopril [Prinivil] 20 mg PO DAILY #30 tablet 04/21/19 Nicotine [Nicoderm 7 mg/24 Hr Transdermal Patch] 1 each TD DAILY #20 patch.td24 04/21/19 History of Present Illiness History of Present Illness: EMIR BARROS is a 73 year old male with a past medical history of hypertension without medication, arthritis related chronic pain and tobacco dependence. He presents with at least 12 hours of word finding difficulty, and discoordination, slurred speech and generalized weakness. In the emergency department he is found to have dysarthria, hypertensive urgency of 190/110. He receives aspirin, hydralazine, labetalol. CT imaging reveals subacute caudate CVA. He is referred to the hospitalist for admission. Patient family deny previous episode or palpitations. Patient is otherwise felt chronically tired with poor sleep and fatigue. He denies recent change in medications. Hospital Course Hospital Course: Patient was admitted for evaluation of new onset neurological deficits. Patient was suspected to have a stroke and stroke protocol was initiated. Unfortunately patient was already out of the window for TPA at this time of presentation. Head CT revealed no evidence of bleed but did show evidence of subacute stroke. Stroke protocol was initiated. Patient underwent MRI of the brain which revealed an acute stroke in the region of his right MCA in the right frontal lobe. Physical exam findings included partial loss of left visual field, with mild weakness in left leg and mild to minimal ataxia of left hand on rapid alternating hand movement. Patient was seen and cleared by physical therapy. Patient is set up for home health. Patient passes speech swallow evaluation and has been tolerating diet. Patient is being discharged with aspirin, Plavix for 21 days, and atorvastatin for secondary stroke prevention. Lipid panel revealed dyslipidemia/hyperlipidemia. CTA head and neck was unremarkable. Hemoglobin A1c was 7.0 but given lack of overt profound hyperglycemia while in the hospital, official diagnosis of diabetes mellitus cannot be made until patient has a repeat measurement of hemoglobin A1c that is also elevated. Patient has been notified of this and has been encouraged to eat less carbs and less sweets and have his hemoglobin A1c measured in the office. Patient also noted to be hypertensive and started on lisinopril 20 mg daily. Echocardiogram which was done as part of evaluation for stroke she was on the preliminary report to have ejection fraction of 24%. Patient however does not have any signs or symptoms of congestive heart failure and with normal RVSP on echo. As such, patient does not meet diagnostic criteria for congestive heart failure even despite cardiomyopathy noted on echo. Patient has been urged given information to follow-up with her domestic laundry worker Dr. Horton in the office for further evaluation of this. Patient is being discharged in safe stable conditions. Physical Exam Vital Signs: Temp Pulse Resp BP Pulse Ox 98.0 F 74 16 135/64 H 96 04/21/19 12:24 04/21/19 12:24 04/21/19 12:24 04/21/19 12:24 04/21/19 12:24 Intake & Output 04/20/19 04/21/19 04/22/19 06:59 06:59 06:59 Intake Total 1100 Output Total 250 Balance 850 Weight 121.9 kg 121.1 kg General appearance: PRESENT: no acute distress, cooperative Neck exam: ABSENT: JVD Respiratory exam: PRESENT: clear to auscultation miller Cardiovascular exam: PRESENT: +S1, +S2 GI/Abdominal exam: PRESENT: soft Neurological exam: PRESENT: alert, awake, oriented to person, oriented to place, oriented to time Results Laboratory Results: WBC 8.3 10^3/uL (4.0-10.5) 04/19/19 19:22 RBC 5.03 10^6/uL (4.35-5.55) 04/19/19 19:22 Hgb 14.7 g/dL (13.5-17.0) 04/19/19 19:22 Hct 43.5 % (37.9-51.0) 04/19/19 19:22 MCV 87 fl (80-97) 04/19/19 19:22 MCH 29.2 pg (27.0-33.4) 04/19/19 19:22 MCHC 33.7 g/dL (32.0-36.0) 04/19/19 19: RDW 14.3 % (11.5-14.0) H 04/19/19 19:22 Plt Count 211 10^3/uL (150-450) 04/19/19 19:22 Lymph % (Auto) 43.7 % (13-45) 04/19/19 19:22 [place] % (Auto) 8.3 % (3-13) 04/19/19 19:22 Eos % (Auto) 1.7 % (0-6) 04/19/19 19:22 Baso % (Auto) 0.5 % (0-2) 04/19/19 19:22 Absolute Neuts (auto) 3.8 10^3/uL (1.7-8.2) 04/19/19 19:22 Absolute Lymphs (auto) 3.6 10^3/uL (0.5-4.7) 04/19/19 19:22 Absolute Monos (auto) 0.7 10^3/uL (0.1-1.4) 04/19/19 19:22 Absolute Eos (auto) 0.1 10^3/uL (0.0-0.6) 04/19/19 19:22 Absolute Basos (auto) 0.0 10^3/uL (0.0-0.2) 04/19/19 19:22 Seg Neutrophils % 45.8 % (42-78) 04/19/19 19:22 PT 13.8 SEC (11.4-15.4) 04/19/19 19:22 INR 1.05 04/19/19 19:22 APTT 26.4 SEC (23.5-35.8) 04/19/19 19:22 Sodium 138.7 mmol/L (137-145) 04/19/19 19:22 Potassium 4.5 mmol/L (3.6-5.0) 04/19/19 19:22 Chloride 103 mmol/L (98-107) 04/19/19 19:22 Carbon Dioxide 25 mmol/L (22-30) 04/19/19 19:22 Anion Gap 11 (5-19) 04/19/19 19:22 BUN 14 mg/dL (7-20) 04/19/19 19:22 Creatinine 0.93 mg/dL (0.52-1.25) 04/19/19 19:22 Est GFR ( Amer) > 60 (>60) 04/19/19 19:22 Est GFR (MDRD) Non-Af > 60 (>60) 04/19/19 19:22 Glucose 95 mg/dL (75-110) 04/19/19 19:22 POC Glucose 151 mg/dL (70-110) H 04/21/19 13:32 Hemoglobin A1c % 7.0 % (4.7-6.0) H 04/20/19 06:23 Calcium 9.7 mg/dL (8.4-10.2) 04/19/19 19:22 Total Bilirubin 0.5 mg/dL (0.2-1.3) 04/19/19 19:22 Direct Bilirubin 0.3 mg/dL (0.0-0.4) 04/19/19 19:22 Neonat Total Bilirubin Not Reportable 04/19/19 19:22 Neonat Direct Bilirubin Not Reportable 04/19/19 19:22 Neonat Indirect Bili Not Reportable 04/19/19 19:22 AST 23 U/L (17-59) 04/19/19 19:22 ALT 24 U/L (<50) 04/19/19 19:22 Alkaline Phosphatase 117 U/L (38-126) 04/19/19 19:22 Creatine Kinase 153 U/L (55-170) 04/19/19 19:22 CK-MB (CK-2) 2.81 ng/mL (<4.55) 04/19/19 19:22 Troponin I 0.061 ng/mL 04/19/19 19:22 Total Protein 8.5 g/dL (6.3-8.2) H 04/19/19 19:22 Albumin 4.7 g/dL (3.5-5.0) 04/19/19 19:22 Triglycerides 108 mg/dL (<150) 04/20/19 06:23 Cholesterol 208.70 mg/dL (0-200) H 04/20/19 06:23 LDL Cholesterol Direct 176 mg/dL (<100) H 04/20/19 06:23 VLDL Cholesterol 22.0 mg/dL (10-31) 04/20/19 06:23 HDL Cholesterol 27 mg/dL (>40) L 04/20/19 06:23 TSH 1.18 uIU/mL (0.47-4.68) 04/19/19 19:22 Urine Opiates Screen NEGATIVE 04/21/19 07:00 Urine Methadone Screen NEGATIVE 04/21/19 07:00 Ur Barbiturates Screen NEGATIVE 04/21/19 07:00 Ur Phencyclidine Scrn NEGATIVE 04/21/19 07:00 Ur Amphetamines Screen NEGATIVE 04/21/19 07:00 U Benzodiazepines Scrn NEGATIVE 04/21/19 07:00 Urine Cocaine Screen NEGATIVE 04/21/19 07:00 U Marijuana (THC) Screen NEGATIVE 04/21/19 07:00 04/19/19 19:22 CK-MB (CK-2) 2.81 Troponin I 0.061 Impressions: Chest X-Ray 04/19/19 18:16 IMPRESSION: NO ACUTE RADIOGRAPHIC FINDING IN THE CHEST. Head CT 04/19/19 18:16 IMPRESSION: 1. Focal area of hypoattenuation within the left caudate head, likely prior chronic lacunar infarct but new since prior exam dated 10/02/2014. 2. No other evidence of acute intracranial process. 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 Findings discussed with Dr. Singh At 1853 hours on 04/19/2019. Head CTA 04/20/19 00:00 IMPRESSION: NO CTA EVIDENCE OF STENOSIS OR ANEURYSM OF THE [place]. Head MRI 04/20/19 00:00 IMPRESSION: Acute infarct within the precentral gyrus of the right frontal lobe (in the distribution of the cortical branches of the right MCA). EVIDENCE OF ACUTE STROKE: YES. RIGHT MCA Neck CTA 04/20/19 00:00 IMPRESSION: NORMAL CTA OF THE EXTRA-CRANIAL CAROTID AND VERTEBRAL ARTERIES. Plan Time Spent: Greater than 30 Minutes Stroke Is this a Stroke Patient?: Yes Stroke Pt being discharged on Anti-thrombolytic therapy?: Yes Stroke Pt being discharged on Anti-coagulation therapy?: Yes Stroke Pt being discharged on Statins?: Yes Acute Heart Failure - Is this a Heart Failure Patient?: No
[2019-04-21 15:59] VITALS: BP 135/60
--- NOTE | 2019-04-23 16:53 | XCELERA REPORT ---
[address] [address] Transthoracic Echocardiogram Report Name: EMIR BARROS Age: 73 yrs Gender: Male : 1945 Patient Status: Inpatient Patient Location: [address] [place] [address] Study Date: 04/20/2019 11:18 AM Height: 73 in Weight: 268 lb BSA: 2.4 m2 Procedure: A two-dimensional transthoracic echocardiogram with color flow and Doppler was performed. The study was technically difficult with many images being suboptimal in quality. The study was technically limited with all images being suboptimal in quality. Reason For Study: cva angelito marques phtn History: CVA. Ordering Physician: MARSHA MCKINNEY Performed By: Ana Cee Interpretation Summary There is no obvious cardiac source of embolus noted on this transthoracic echocardiogram. Follow-up with a JOSE ALFREDO is suggested if cardiac source is still suspected. The left ventricle is mildly dilated. There is normal left ventricular wall thickness. LV EF is 35% Left ventricular systolic function is moderately reduced. Doppler measurements suggest impaired left ventricular relaxation, which is associated with grade I/IV or mild diastolic dysfunction There is moderate global hypokinesis of the left ventricle. There is no thrombus. Cannot assess ASD ,VSD .or PFO The right atrium is normal. The left atrial size is normal. There is no evidence of mitral valve prolapse. There is no vegetation seen on the mitral valve. There is no mitral valve stenosis. There is a trace to mild amount of mitral regurgitation There is no aortic valvular vegetation. There is no aortic valve stenosis There is a mild amount of aortic regurgitation There is no tricuspid stenosis. There is a trace to mild amount of tricuspid regurgitation There is mild pulmonary hypertension by echo RVSP is 38 to 43 mm of Hg , with RA mean of 5 to 19. There is no pulmonic valvular stenosis. The aortic root is not well visualized but is probably normal size. The inferior vena cava appeared normal and decreased > 50% with respiration (RAP 5-10 mmHg) There is no pericardial effusion. There is no obvious cardiac source of embolus noted on this transthoracic echocardiogram. Follow-up with a JOSE ALFREDO is suggested if cardiac source is still suspected MMode/2D Measurements & Calculations RVDd: 2.7 cm LVIDd: 6.2 cm FS: 11.3 % Ao root diam: 2.8 cm IVSd: 1.1 cm LVIDs: 5.5 cm EDV(Teich): LVPWd: 0.94 cm 191.0 ml Ao root area: ESV(Teich): 6.4 cm2 145.2 ml ACS: 2.1 cm EF(Teich): 24.0 % LA dimension: 3.7 cm LVLd ap4: 7.7 cm SV(MOD-sp4): 78.0 ml EDV(MOD-sp4): 238.0 ml LVLs ap4: 7.2 cm ESV(MOD-sp4): 160.0 ml EF(MOD-sp4): 32.8 % Doppler Measurements & Calculations MV E max billy: MV P1/2t max billy: Ao V2 max: AI max billy: 87.9 cm/sec 117.1 cm/sec 156.1 cm/sec 274.9 cm/sec MV A max billy: MV P1/2t: 50.2 msec Ao max PG: AI max P.9 cm/sec MVA(P1/2t): 4.4 cm2 9.7 mmHg 30.2 mmHg MV E/A: 0.71 MV dec slope: AI dec slope: 104.5 cm/sec2 683.8 cm/sec2 AI P1/2t: MV dec time: 0.21 sec 770.3 msec LV V1 max PG: PA V2 max: PI end-d billy: TR max billy: 3.8 mmHg 91.3 cm/sec 82.2 cm/sec 286.0 cm/sec LV V1 max: PA max P.3 mmHg TR max P.1 cm/sec 32.7 mmHg AV P1/2t-pr_phl: MV P1/2t-pr_phl: 804.5 msec 50.2 msec Left Ventricle The left ventricle is mildly dilated. There is normal left ventricular wall thickness. LV EF is 35%. Left ventricular systolic function is moderately reduced. Doppler measurements suggest impaired left ventricular relaxation, which is associated with grade I/IV or mild diastolic dysfunction. There is moderate global hypokinesis of the left ventricle. There is no thrombus. Cannot assess ASD ,VSD .or PFO. Right Ventricle The right ventricle is not well visualized secondary to technical limitations. Atria The right atrium is normal. The left atrial size is normal. Mitral Valve There is no evidence of mitral valve prolapse. There is no vegetation seen on the mitral valve. There is no mitral valve stenosis. There is a trace to mild amount of mitral regurgitation. Aortic Valve There is no aortic valvular vegetation. There is no aortic valve stenosis. There is a mild amount of aortic regurgitation. Tricuspid Valve There is no tricuspid stenosis. There is a trace to mild amount of tricuspid regurgitation. There is mild pulmonary hypertension by echo. RVSP is 38 to 43 mm of Hg , with RA mean of 5 to 19. Pulmonic Valve There is no pulmonic valvular stenosis. There is a trace amount of pulmonic regurgitation. Great Vessels The aortic root is not well visualized but is probably normal size. The inferior vena cava appeared normal and decreased > 50% with respiration (RAP 5-10 mmHg). Effusions There is no pericardial effusion. : MARSHA MCKINNEY Lakshmi
== END 2019-04-21 17:01 | disposition home or self-care (01) ==
LOC: ER 17:51 → INTOOBSV 23:07 → EH 23:07 → 3S 04-20 16:22
PROVIDERS: ADMIT Internal Medicine; ATTEND Internal Medicine
DX: I63.89 Other cerebral infarction (principal); R47.1 Dysarthria and anarthria; H53.8 Other visual disturbances; G83.14 Monoplegia of lower limb affecting left nondominant side; R27.0 Ataxia, unspecified; E66.01 Morbid (severe) obesity due to excess calories; I42.9 Cardiomyopathy, unspecified; F17.200 Nicotine dependence, unspecified, uncomplicated; M19.90 Unspecified osteoarthritis, unspecified site; R53.83 Other fatigue; I16.0 Hypertensive urgency; R47.01 Aphasia; E78.00 Pure hypercholesterolemia, unspecified; I44.7 Left bundle-branch block, unspecified; G47.9 Sleep disorder, unspecified; R73.09 Other abnormal glucose; Z68.39 Body mass index [BMI] 39.0-39.9, adult; Z60.2 Problems related to living alone; Z82.49 Family history of ischemic heart disease and other diseases of the circulatory system; Z83.3 Family history of diabetes mellitus; Z91.19 Patient's noncompliance with other medical treatment and regimen
CPT/HCPCS: 93005; 99285; 96374; 96375; 36415 ×2; 82553; 82962 ×2; 82550; 84443; 85025; 85610; 85730; 80053; 84484; 80307; 83036; 80061; 93306; 70551; 71045; 70450; 70496; 70498; 93010; 97530; 97162; 92523; 97166; G0378 ×4; A9270 ×12; J1644 ×2; J0360; J3490 ×3; J7030

== ENCOUNTER 2019-06-17 19:01 | Emergency (ER) | payer MEDICARE, MEDICAID ==
--- NOTE | 2019-06-17 19:19 | ER Document Report ---
ED Medical Screen (RME) - General Chief Complaint: Leg Pain Stated Complaint: LEG PAIN Time Seen by Provider: 06/17/19 19:10 Mode of Arrival: Wheelchair Information source: Patient, Friend Notes: 74-year-old male with history of diabetes, HTN, stroke presents to the emergency department with complaints of left foot pain. Has had the pain for the past couple months. Was evaluated by a welder tool and die yesterday and some type of test was ordered but he is not sure what was ordered. Patient reports his foot has been discolored and cold to touch. Some erythema swelling noted to the left foot. His previous caregiver, friend is on the phone. Reports that patient does have some memory issues. Daughter is in the car in the parking lot at this time. I have greeted and performed a rapid initial assessment of this patient. A comprehensive ED assessment and evaluation of the patient, analysis of test results and completion of the medical decision making process will be conducted by additional ED providers. TRAVEL OUTSIDE OF THE [place] IN LAST 30 DAYS: No - Related Data Allergies/Adverse Reactions: No Known Allergies Allergy (Verified 04/19/19 18:07) Past Medical History - Past Medical History Cardiac Medical History: Reports: Hx Hypertension Musculoskeltal Medical History: Reports Hx Arthritis Psychiatric Medical History: Denies: Hx Depression - Immunizations Hx Diphtheria, Pertussis, Tetanus Vaccination: Yes Physical Exam - Vital signs Vitals: Temp Pulse Resp BP Pulse Ox 98.8 F 85 18 138/69 H 97 06/17/19 19:06 06/17/19 19:06 06/17/19 19:06 06/17/19 19:06 06/17/19 19:06 Course - Vital Signs Vital signs: Temp Pulse Resp BP Pulse Ox 98.8 F 85 18 138/69 H 97 06/17/19 19:06 06/17/19 19:06 06/17/19 19:06 06/17/19 19:06 06/17/19 19:06
--- NOTE | 2019-06-17 20:13 | RADIOLOGY REPORT (SQ) ---
CLINICAL INDICATION: pain. Pain of the dorsum of the foot. TECHNIQUE: 3 view(s) were obtained of the left foot. COMPARISON: None. FINDINGS: No acute displaced fracture is identified of the foot. Alignment appears anatomic. Osteoarthritis. Old posttraumatic change. Mild pes planus. Mild soft tissue swelling. IMPRESSION: No evidence of acute displaced fracture of the foot.
[2019-06-17 20:41] LABS: ABSOLUTE BASOPHILS # (AUTO) 0.1 10^3/uL (0.0-0.2); ABSOLUTE EOSINOPHILS # (AUTO) 0.1 10^3/uL (0.0-0.6); ABSOLUTE LYMPHOCYTES (AUTO) 2.8 10^3/uL (0.5-4.7); ABSOLUTE MONOCYTES (AUTO) 0.8 10^3/uL (0.1-1.4); ABSOLUTE NEUT (AUTO) 4.7 10^3/uL (1.7-8.2); BASOPHILS % (AUTO) 0.8 % (0-2); EOSINOPHILS % (AUTO) 1.1 % (0-6); HEMATOCRIT 35.6 % (37.9-51.0); HEMOGLOBIN 12.1 g/dL (13.5-17.0); LYMPHOCYTES % (AUTO) 33.3 % (13-45); MEAN CORPUSCULAR HEMOGLOBIN 29.3 pg (27.0-33.4); MEAN CORPUSCULAR HGB CONC 34.1 g/dL (32.0-36.0); MEAN CORPUSCULAR VOLUME 86 fl (80-97); MONOCYTES % (AUTO) 9.8 % (3-13); PLATELET COUNT 224 10^3/uL (150-450); RED BLOOD COUNT 4.15 10^6/uL (4.35-5.55); RED CELL DISTRIBUTION WIDTH 14.1 % (11.5-14.0); TOTAL CELLS COUNTED % (AUTO) 100 %; WHITE BLOOD COUNT 8.5 10^3/uL (4.0-10.5)
[2019-06-17] MEDS ORDERED: ONDANSETRON HCL INJ/PF 4 MG/2 ML SDV IV ONE (20:49)
[2019-06-17] MEDS ORDERED: MORPHINE SULFATE 10 MG/ML INJ IV ONE ×2 (20:49→23:41)
[2019-06-17 20:58] LABS: ALBUMIN 4.5 g/dL (3.5-5.0); ALKALINE PHOSPHATASE 122 U/L (38-126); ANION GAP 11 (5-19); ASPARTATE AMINO TRANSFERASE 29 U/L (17-59); BILIRUBIN,TOTAL 0.5 mg/dL (0.2-1.3); BLOOD UREA NITROGEN 30 mg/dL (7-20); CALCIUM 10.1 mg/dL (8.4-10.2); CARBON DIOXIDE 26 mmol/L (22-30); CHLORIDE 97 mmol/L (98-107); GLUCOSE 115 mg/dL (75-110); TOTAL PROTEIN 7.9 g/dL (6.3-8.2)
--- NOTE | 2019-06-17 21:19 | ER Document Report ---
Entered by BRIAN BARROS SCRIBE 06/17/192025 Acting as scribe for:IGNACIO RAZO IV, MD ED Extremity Problem, Lower - General Chief Complaint: Swelling of Lower Extremity Stated Complaint: LEG PAIN Time Seen by Provider: 06/17/19 19:10 Primary Care Provider: LUIGI STEVE MD [Primary Care Provider] - 06/21/19 Mode of Arrival: Wheelchair Information source: Patient, Relative - Daughter Notes: This 74 year old male patient with a history of HTN, HLD, DM, CVA and CAD presents to the ED today with complaints of left lower extremity pain and swelling for the past x2 months. Patient describes the pain as a severe shooting pain that starts at his left foot and radiates up his left leg. Patient's daughter Katrin via phone states that the patient has "fluid on his leg" and that it has been discolored and cold to the touch. She reports concerns about the circulation to his left foot due to his diabetes and states that he has been taking fluid pills that has helped with the swelling, but not "100%." She notes that the patient was seen by his escrow secretary yesterday and was advised to come to the ED today for a "circulation test." She states that the patient had a stroke with left-sided weakness on 04/19/2019 and hasn't been right since, stating that he has been having cognition issues with comprehension and processing inform ation. TRAVEL OUTSIDE OF THE [place] IN LAST 30 DAYS: No - Related Data Allergies/Adverse Reactions: No Known Allergies Allergy (Verified 04/19/19 18:07) Past Medical History - General Information source: Patient, Relative - Daughter - Social History Smoking Status: Former Smoker Cigarette use (# per day): No Chew tobacco use (# tins/day): No Smoking Education Provided: No Lives with: Family Family History: Reviewed & Not Pertinent, CAD, DM, Hypertension Patient has suicidal ideation: No Patient has homicidal ideation: No - Past Medical History Cardiac Medical History: Reports: Hx Coronary Artery Disease, Hx Hypercholesterolemia, Hx Hypertension Neurological Medical History: Reports: Hx Cerebrovascular Accident - 04/19/2019 Endocrine Medical History: Reports: Hx Diabetes Mellitus Type 1 Musculoskeletal Medical History: Reports Hx Arthritis Past Surgical History: Reports: Hx Orthopedic Surgery - L leg, L ankle ORIF - Immunizations Hx Diphtheria, Pertussis, Tetanus Vaccination: Yes Review of Systems - Review of Systems Constitutional: No symptoms reported EENT: No symptoms reported Cardiovascular: No symptoms reported Respiratory: No symptoms reported Gastrointestinal: No symptoms reported Genitourinary: No symptoms reported Male Genitourinary: No symptoms reported Musculoskeletal: See HPI, Leg swelling, Other - LLE pain Skin: No symptoms reported Hematologic/Lymphatic: No symptoms reported Neurological/Psychological: No symptoms reported -: Yes All other systems reviewed and negative Physical Exam - Vital signs Vitals: Temp 98.8 F 06/17/19 19:02 Interpretation: Normal - General General appearance: Alert - HEENT Head: Normocephalic, Atraumatic Eyes: Normal Pupils: PERRL - Respiratory Respiratory status: No respiratory distress Chest status: Nontender Breath sounds: Normal Chest palpation: Normal - Cardiovascular Rhythm: Regular Heart sounds: Normal auscultation Murmur: No Friction rub: No Gallop: None auscultated - Abdominal Inspection: Normal Distension: No distension Bowel sounds: Normal Tenderness: Nontender - Abdomen soft Organomegaly: No organomegaly - Back Back: Normal, Nontender - Extremities General upper extremity: Normal inspection Foot: Edema - Moderate edema to left foot, Other - Capillary refill < 2 seconds in toes of left foot. Warm to the touch. Erythema noted to dorsal surface of left foot. No pallor or coolness appreciated to left foot. - Neurological Neuro grossly intact: Yes Speech: Normal Sensory: Normal - Psychological Associated symptoms: Normal affect, Normal mood - Skin Skin Temperature: Warm Skin Moisture: Dry Skin Color: Normal Course - Re-evaluation Re-evalutation: 06/17/19 23:28 Results of ED MSE discussed with patient's daughter. Doppler ultrasound is not available at this time. This MD put in a order for outpatient radiology for the Doppler ultrasound. All the daughter's questions were answered prior to discharge. Emergency signs and symptoms, reasons to return to the emergency department discussed with the patient's daughter. - Vital Signs Vital signs: Temp Pulse Resp BP Pulse Ox 98.8 F 85 18 138/69 H 97 06/17/19 19:06 06/17/19 19:06 06/17/19 19:06 06/17/19 19:06 06/17/19 19:06 - Laboratory Result Diagrams: 06/17/19 20:18 06/17/19 20:18 Laboratory results interpreted by me: 06/17/19 06/17/19 20:18 20:18 RBC 4.15 L Hgb 12.1 L Hct 35.6 L RDW 14.1 H Sodium 134.3 L Chloride 97 L BUN 30 H Creatinine 1.53 H Est GFR ( Amer) 54 L Est GFR (MDRD) Non-Af 44 L Glucose 115 H - Diagnostic Test Radiology reviewed: Reports reviewed - Consults dr. steve Time consulted: 23:13 - agreed with order for outpt doppler Reason for consultation: 06/17/19 23:38 left foot swelling and pain, daughter's concerns about persistent pain and swelling Consulted provider: follow-up in office Discharge - Discharge Clinical Impression: Swelling of left foot Condition: Good Disposition: HOME, SELF-CARE Additional Instructions: Return to the Emergency Department without delay if any worse. HOME CARE INSTRUCTIONS & INFORMATION: Thank you for choosing us for your medical needs. We hope you're satisfied with the care you received. After you leave, you must properly care for your problem and, at the same time, observe its progress. Any condition can change. Some illnesses can change rapidly over hours or days. If your condition worsens, return to the Emergency Department or see your physician promptly. ABOUT YOUR X-RAYS AND EKG'S: If you had an EKG or X-rays taken, they have been read by the Emergency Physician. The X-rays and EKG's will also be read by a Radiologist or Javascript Software Engineer within 24 hours. If discrepancies are noted, you will be notified by telephone. Please be certain the ED has a correct telephone number & address where you can be reached. Also, realize that some fractures or abnormalities do not show up on initial X-rays. If your symptoms continue, see your physician. ABOUT YOUR LABORATORY TEST: If you had laboratory tests, the results have been reviewed by the Emergency Physician. Some test results (for example cultures) may not be available for several days. You will be contacted if any test result shows you need additional treatment. Please be certain the ED has a correct telephone number and address where you can be reached. ABOUT YOUR MEDICATIONS: You will receive instructions on how to take your medicine on the prescription label you receive. Additional information may be provided by the Pharmacy. If you have questions afterwards, call the ED for clarification or further instructions. Some prescribed medications may cause drowsiness. Do not perform tasks such as driving a car or operating machinery without consulting your Pharmacist. If you feel you need a refill of pain medication, your condition will need re-evaluation. Please do not call for a refill of any medication. ABOUT YOUR SIGNATURE: Signature of this document acknowledges to followin. Understanding that you received emergency treatment and that you may be released before al medical problems are known or treated. Please be certain the ED has a correct phone number & address where you can be reached. 2. Acknowledgement that you will arrange for follow-up care as recommended. 3. Authorization for the Emergency Physician to provide information to your follow-up Physician in order to maximize your care. AT ANY TIME, IF YOUR SYMPTOMS CHANGE SIGNIFICANTLY OR WORSEN OR YOU DEVELOP NEW SYMPTOMS, RETURN TO THE EMERGENCY DEPARTMENT IMMEDIATELY FOR RE-EVALUATION. OUR GOAL IS TO PROVIDE EXCELLENT MEDICAL CARE! WE HOPE THAT WE HAVE MET YOUR EXPECTATIONS DURING YOUR EMERGENCY DEPARTMENT VISIT AND THAT YOU FEEL YOU HAVE RECEIVED EXCELLENT CARE! Prescriptions: Lidocaine [Lidoderm 5% (700 mg) Transdermal Patch] 1 patch TP Q12H PRN #10 adh..patch PRN Reason: foot/leg pain Forms: Follow-Up Radiology Testing Referrals: LUIGI STEVE MD [Primary Care Provider] - 06/21/19 I personally performed the services described in the documentation, reviewed and edited the documentation which was dictated to the scribe in my presence, and it accurately records my words and actions.
[2019-06-17 21:28] LABS: INTERNATIONAL RATION (INR) 1.14; PROTHROMBIN TIME 14.7 SEC (11.4-15.4)
[2019-06-17 21:29] LABS: PARTIAL THROMBOPLASTIN TIME 27.2 SEC (23.5-35.8)
[2019-06-17] MEDS ORDERED: NORMAL SALINE 500 ML IV ONE (22:20)
[2019-06-18 00:23] VITALS: BP 137/66
== END 2019-06-18 00:23 | disposition home or self-care (01) ==
LOC: ER 19:01
DX: M79.89 Other specified soft tissue disorders (principal); L53.9 Erythematous condition, unspecified; M79.672 Pain in left foot; E10.9 Type 1 diabetes mellitus without complications; I10 Essential (primary) hypertension; I25.10 Atherosclerotic heart disease of native coronary artery without angina pectoris; Z79.899 Other long term (current) drug therapy; Z87.891 Personal history of nicotine dependence
CPT/HCPCS: 96376; 99283; 96361; 96374; 96375; 36415; 87040; 85025; 85610; 85730; 80053; 73630; J2270; J2405; J7040

== ENCOUNTER → 2019-06-21 | Outpatient (CLI) | payer MEDICARE, MEDICAID ==
--- NOTE | 2019-06-21 14:18 | RADIOLOGY REPORT (SQ) ---
EXAM DESCRIPTION: ARTERIAL LOWER EXTREM BILAT IMAGES COMPLETED DATE/TIME: 06/21/2019 1:59 pm REASON FOR STUDY: ATHEROSCLEROSIS I70.25 ATHSCL WILTON ARTERIES OF EXTREMITIES W ULCERATION COMPARISON: None. TECHNIQUE: Dynamic and static galvan scale and color images acquired of the lower extremity arteries. Additional selected spectral images recorded. LIMITATIONS: ABIs could not be obtained. FINDINGS: RIGHT LEG: INFLOW ARTERIES: Not visualized. FEMORAL ARTERIES:Multiphasic waveforms. No significant stenosis. POPLITEAL ARTERY:Multiphasic waveforms. No significant stenosis. PATENT TIBIOPERONEAL TRUNK AND 3 VESSEL RUNOFF: Yes. OTHER: No other significant finding. LEFT LEG: INFLOW ARTERIES: Not visualized. FEMORAL ARTERIES:Low amplitude monophasic waveforms common femoral artery. Femoral artery is occlude d. There is reconstituted flow via collaterals distally. POPLITEAL ARTERY:Monophasic waveforms. No focal stenosis. PATENT TIBIOPERONEAL TRUNK AND 3 VESSEL RUNOFF: Single vessel runoff via dorsalis pedis. Reconstitut ed flow via collaterals distal anterior tibial. OTHER: No other significant finding. IMPRESSION: Right: No significant stenosis. Left: Diminished flow in the ORCHESTRATOR suggest more proximal obstruction. Chronic occlusion femoral arter y. Small vessel disease. TECHNICAL DOCUMENTATION: JOB ID: [id number] [employer]- All Rights Reserved Reading location - IP/workstation name: [email or web address]
== END ==
LOC: SP 10:55
PROVIDERS: ATTEND Preventive Medicine Undersea and Hyperbaric Medicine
DX: I77.1 Stricture of artery (principal)
CPT/HCPCS: 93925